=== PATIENT | female | born 1955 | race Two or more races ===

== ENCOUNTER 2019-09-24 13:49 | Emergency (ER) | payer MEDICAID, OTHER, SELFPAY ==
--- NOTE | 2019-09-24 14:00 | NUR ---
PT PRIMARY AZERI SPEAKING, JILLIAN CHAVEZ RN TO PROVIDE TRANSLATION. PT STATES SHE IS HERE TO GET TESTED FOR COVID. HER SON IS A [facility] AND TESTED POSITIVE FOR COVID. SHE STATES SHE CAME HERE [facility] REFUSED TO TEST HER. PT HAS NO MEDICAL COMPLAINTS AT THIS TIME. IT WAS EXPLAINED TO THE PT THAT [facility] IS NOT DOING TESTING IN THE ED FOR NON-SYMPTOMATIC INDIVIDUALS. WE REFERRED HER TO THE HEALTH DEPT.
== END 2019-09-24 14:04 | disposition left against medical advice (07) ==
LOC: ED 13:50
DX: Z53.21 Procedure and treatment not carried out due to patient leaving prior to being seen by health care provider (principal)